=== PATIENT | male | born 1975 | race Caucasian/White ===

== ENCOUNTER 2017-06-16 11:03 | Emergency (ER) | payer BC ==
[2017-06-16] MEDS ORDERED: HYDROmorphone* 1 MG/ML 1 ML SYR IM ONE (11:35)
[2017-06-16] MEDS ORDERED: LORazepam TAB(*) 1 MG PO ONE (11:35)
[2017-06-16] MEDS ORDERED: Ibuprofen TAB* 400 MG PO ONE (11:36)
--- NOTE | 2017-06-16 12:08 | ED ---
Enedelia Ochoa SooYoung, scribed for Corinna Hill MD on 06/16/17 at 1127 . Back Pain - HPI Summary HPI Summary: A 42 y/o M presents to ED with lower back pain onset yesterday approx noon. Pt was playing soccer yesterday when he suddenly had back pain and collapsed to the ground. Back pain radiates down his legs. Associated sx: groin pain with occasional R testicle pain. Denies numbness, weakness, incontinence. He took 2 Advil this AM around 1000, and 2 Alleve yesterday around 1300. OTC and ice did not provide relief. Pt denies DM, CA, IVDA, no steroid use. He is a non-smoker. Not on daily meds. NKA. PCP is [facility]. Pt is scheduled to do a triathlon next week. - History of Current Complaint Chief Complaint: EDBackInjuryPain Stated Complaint: BACK/LEG PAIN Time Seen by Provider: 06/16/17 11:16 Hx Obtained From: Patient Onset/Duration: Sudden Onset, Lasting Days - onset yesterday, Still Present Timing: Constant Back Pain Location: Is Discrete @ - low back Severity Currently: Severe Pain Intensity: 8 Pain Scale Used: 0-10 Numeric Aggravating Symptom(s): Movement, Lifting, Bending, Walking Alleviating Symptom(s): Rest Associated Signs And Symptoms: Positive: Pain with Weight Bearing. Negative: Weakness, Numbness, Bladder Incontinence, Bowel Incontinence - Allergies/Home Medications Allergies/Adverse Reactions: Allergies Allergy/AdvReac Type Severity Reaction Status Date / Time No Known Allergies Allergy Verified 02/15/13 09:19 PMH/Surg Hx/FS Hx/Imm Hx Previously Healthy: Yes Endocrine/Hematology History: Denies: Hx Anticoagulant Therapy, Hx Diabetes, Hx Thyroid Disease Cardiovascular History: Denies: Hx Congestive Heart Failure, Hx Deep Vein Thrombosis, Hx Hypertension , Hx Myocardial Infarction, Hx Pacemaker/ICD Respiratory History: Denies: Hx Asthma, Hx Chronic Obstructive Pulmonary Disease (COPD), Hx Lung Cancer, Hx Pneumonia, Hx Pulmonary Embolism GI History: Denies: Hx Gall Bladder Disease, Hx Gastrointestinal Bleed, Hx Ulcer, Hx Urosepsis History: Denies: Hx Kidney Stones, Hx Renal Disease Neurological History: Denies: Hx Dementia, Hx Migraine, Hx Seizures, Hx Transient Ischemic Attacks (TIA) Psychiatric History: Denies: Hx Anxiety, Hx Depression, Hx Schizophrenia, Hx Bipolar Disorder Infectious Disease History: No Infectious Disease History: Denies: Traveled Outside the [place] in Last 30 Days - Family History Known Family History: Positive: Cardiac Disease Negative: Hypertension - Social History Occupation: Employed Full-time Lives: With Family Alcohol Use: Weekly Hx Substance Use: No Substance Use Type: Reports: None Hx Tobacco Use: No Smoking Status (MU): Never Smoked Tobacco Review of Systems Negative: Fever Negative: incontinence Positive: Other - pos: back pain; groin pain with occ R testicle pain Negative: Weakness, Numbness All Other Systems Reviewed And Are Negative: Yes Physical Exam Triage Information Reviewed: Yes Vital Signs On Initial Exam: Initial Vitals Temp Pulse Resp BP Pulse Ox 98.4 F 58 16 107/61 98 06/16/17 11:15 06/16/17 11:15 06/16/17 11:15 06/16/17 11:15 06/16/17 11:15 Vital Signs Reviewed: Yes Appearance: Positive: Well-Appearing, No Pain Distress Skin: Positive: Warm, Skin Color Reflects Adequate Perfusion, Dry Eyes: Positive: EOMI, OSMEL Neck: Positive: Supple, Nontender Respiratory/Lung Sounds: Positive: Clear to Auscultation, Breath Sounds Present. Negative: Rales, Rhonchi, Wheezes Cardiovascular: Positive: RRR. Negative: Murmur, Rub, Other - neg: gallop Musculoskeletal: Positive: Strength/ROM Intact, Other - No saddle, nml leg-toe raise, no numbness to saddle area, no bladder dysfunction, nml hip flexor strength. Negative: Edema Left, Edema Right Neurological: Positive: Alert, Oriented to Person Place, Time, CN Intact II-III Psychiatric: Positive: Affect/Mood Appropriate Diagnostics - Vital Signs Vital Signs Temp Pulse Resp BP Pulse Ox 06/16/17 11:15 98.4 F 58 16 107/61 98 - Laboratory Lab Statement: Any lab studies that have been ordered have been reviewed, and results considered in the medical decision making process. Back Pain Course/Dx - Course Course Of Treatment: 42 yo very fit male who twisted during soccer with onset of low back back pain radiating down right leg. Pt has no epidural abscess or fracture risk factors (diabetes, cancer, ivdu, prednisone use), there was no trauma. He is neurologically intact without fevers or chills. Pt was given a medrol dose pack, pain meds, antiinflammatories and muscle relaxers with close f /u with sports medicine. He was also given an excuse note to not participate in a triathlon next week - Diagnoses Provider Diagnoses: Sciatica Discharge - Discharge Plan Condition: Stable Disposition: HOME Prescriptions: Cyclobenzaprine TAB* [Flexeril 10 MG TAB*] 10 mg PO TID PRN #30 tab PRN Reason: Spasms HYDROcodone/ACETAMIN 5-325 MG* [[place] 5-325 TAB*] 2 tab PO Q8H PRN #20 tab MDD 6 PRN Reason: Pain Methylprednisolone [Medrol Dosepak 4 MG*] 0 mg PO .SEE ALINA INSTRUCTION #1 alina Patient Education Materials: Hydrocodone/Acetaminophen (By mouth), Cyclobenzaprine (By mouth), Methylprednisolone (By mouth), Low Back Strain (ED) Forms: *Gen. Provider Communication Referrals: [facility] [Outside] Non Staff,Doctor [Primary Care Provider] - [facility] [Outside] Yoav Leahy [Medical Doctor] - 1 Day Additional Instructions: Follow up with Dr. Leahy, sports medicine, tomorrow. Please return to the ED if you experience new or worsening symptoms. The documentation as recorded by the Enedelia estrada SooYoung accurately reflects the service I personally performed and the decisions made by me, Corinna Hill MD.
[2017-06-16 12:52] VITALS: BP 139/90
== END 2017-06-16 12:51 | disposition home or self-care (01) ==
LOC: ED 11:03
DX: M54.30 Sciatica, unspecified side (principal); M54.9 Dorsalgia, unspecified
CPT/HCPCS: 99282; A9270-GY; J1170